=== PATIENT | male | born 1975 | race American Indian/Alaskan Native ===

== ENCOUNTER 2019-02-12 18:05 | Emergency (ER) | payer OTHER ==
[2019-02-12] MEDS ORDERED: NACL 0.9% 1000 ML 1,000 ML IV ONE (18:08)
[2019-02-12 18:15] VITALS: BP 144/71
[2019-02-12] MEDS ORDERED: TORADOL IV ONE (18:15)
[2019-02-12] MEDS ORDERED: TORADOL ONE (18:17)
--- NOTE | 2019-02-12 18:21 | Emergency Department Report ---
ED Fall HPI - General Chief Complaint: Fall Stated Complaint: FALL Time Seen by Provider: 02/12/19 18:07 Source: patient Mode of arrival: Stretcher - History of Present Illness Initial Comments: This is a 43-year-old man who fell approximately 10 feet off a ladder. He fell onto his right side. He was vague about the circumstances of his fall. He could not state that he exactly lost consciousness but did not seem to have good recall of the circumstances of why he fell. Does not appear to have retrograde amnesia. He does not have any gross evidence of head injury. He does complain of discomfort and the right side of his neck as well as his mid thoracic spine area on preliminary palpation. He was ambulatory after the event and came to triage in a private vehicle. MD Complaint: fall -: unknown (somewhat vague history) Fall From: other (ladder) When Fall Occurred: 1 hour [employer] (or less) Place Fall Occurred: home Loss of Consciousness: other (I don't think so) Prolonged Down Time?: no Symptoms Prior to Fall: none Location: neck, back Severity: mild Quality: aching Context: other (uncertain) Associated Symptoms: denies - Related Data Previous Rx's Medication Instructions Recorded Last Taken Type Naproxen [Naprosyn] 500 mg PO Q12H PRN #14 tablet 02/12/19 Unknown Rx Allergies Allergy/AdvReac Type Severity Reaction Status Date / Time No Known Allergies Allergy Unverified 02/12/19 18:14 ED Review of Systems ROS: Stated complaint: FALL Other details as noted in HPI Constitutional: denies: chills, fever Eyes: denies: eye pain, eye discharge, vision change ENT: denies: ear pain, throat pain Respiratory: denies: cough, shortness of breath, wheezing Cardiovascular: denies: chest pain, palpitations Endocrine: no symptoms reported Gastrointestinal: denies: abdominal pain, nausea, diarrhea Genitourinary: denies: urgency, dysuria Musculoskeletal: denies: back pain, joint swelling, arthralgia Skin: denies: rash, lesions Neurological: denies: headache, weakness, paresthesias Psychiatric: denies: anxiety, depression Hematological/Lymphatic: denies: easy bleeding, easy bruising ED Past Medical Hx - Past Medical History Previous Medical History?: No - Surgical History Past Surgical History?: No - Social History Smoking Status: Former Smoker Substance Use Type: None - Medications Home Medications: Home Medications Medication Instructions Recorded Confirmed Last Taken Type Naproxen [Naprosyn] 500 mg PO Q12H PRN #14 tablet 02/12/19 Unknown Rx ED Physical Exam - General Limitations: No Limitations General appearance: alert, in no apparent distress - Head Head exam: Present: atraumatic, normocephalic - Eye Eye exam: Present: normal appearance. Absent: scleral icterus - ENT ENT exam: Present: mucous membranes moist - Neck Neck exam: Present: normal inspection, tenderness (mild right paravertebral mid cervical tenderness), other (placed in a cervical collar) - Respiratory Respiratory exam: Present: normal lung sounds bilaterally. Absent: respiratory distress - Cardiovascular Cardiovascular Exam: Present: regular rate, normal rhythm. Absent: systolic murmur, diastolic murmur, rubs, gallop - GI/Abdominal GI/Abdominal exam: Present: soft, normal bowel sounds. Absent: distended, t enderness, guarding, rebound, rigid - Rectal Rectal exam: Present: deferred - Extremities Exam Extremities exam: Present: normal inspection, full ROM. Absent: tenderness - Back Exam Back exam: Present: normal inspection, paraspinal tenderness (mid dorsal spine). Absent: CVA tenderness (R), CVA tenderness (L), vertebral tenderness - Neurological Exam Neurological exam: Present: alert, oriented X3, CN II-XII intact. Absent: motor sensory deficit - Psychiatric Psychiatric exam: Present: normal affect, normal mood - Skin Skin exam: Present: warm, dry, intact, normal color. Absent: rash ED Course Vital Signs 02/12/19 18:12 Temperature 98 F Pulse Rate 98 H Respiratory 16 Rate Blood Pressure 144/71 O2 Sat by Pulse 100 Oximetry - Reevaluation(s) Reevaluation #1: Patient is doing well without significant complaint of pain. He states he remembers the event better now. He states the ladder simply slipped off the gutter while he was trying to go down. He does not refer any additional complaint. 02/12/19 19:41 ED Medical Decision Making - Lab Data Result diagrams: 02/12/19 18:29 02/12/19 Unknown Laboratory Results - last 24 hr 02/12/19 02/12/19 02/12/19 18:29 Unknown Unknown WBC 5.5 RBC 4.31 Hgb 14.8 Hct 43.6 MCV 101 H MCH 34 H MCHC 34 RDW 12.9 L Plt Count 217 Lymph % (Auto) 41.9 H [place] % (Auto) 13.4 H Eos % (Auto) 4.9 H Baso % (Auto) 0.5 Lymph # 2.3 [place] # 0.7 Eos # 0.3 Baso # 0.0 Seg Neutrophils % 39.3 L Seg Neutrophils # 2.2 Sodium 141 Potassium 3.9 Chloride 101.6 Carbon Dioxide 26 Anion Gap 17 BUN 12 Creatinine 1.2 Estimated GFR > 60 BUN/Creatinine Ratio 10 Glucose 113 H Calcium 9.8 Total Bilirubin 0.60 Direct Bilirubin < 0.2 Indirect Bilirubin 0.4 AST 26 ALT 23 Alkaline Phosphatase 89 Total Protein 7.7 Albumin 4.0 Albumin/Globulin Ratio 1.1 - EKG Data -: EKG Interpreted by Me EKG shows normal: sinus rhythm, axis, intervals, QRS complexes, ST-T waves Rate: normal - EKG Data Interpretation: no acute changes, other (no ectopy) - Radiology Data Radiology results: report reviewed (CT head no acute process) Chest x-ray and thoracic spine x-ray showed no acute process Cervical CT no fracture no malalignment per Radiologist Critical care attestation.: If time is entered above; I have spent that time in minutes in the direct care of this critically ill patient, excluding procedure time. ED Disposition Clinical Impression: Strain, dorsal Cervical strain Qualifiers: Encounter type: initial encounter Qualified Code(s): S16.1XXA - Strain of muscle, fascia and tendon at neck level, initial encounter Fall Qualifiers: Encounter type: initial encounter Qualified Code(s): W19.XXXA - Unspecified fall, initial encounter Disposition: TO HOME OR SELFCARE Is pt being admited?: No Does the pt Need Aspirin: No Condition: Stable Instructions: Cervical Spine Strain (ED), Muscle Strain (ED) Additional Instructions: Return if any additional problem acute change as needed. Follow-up with orthopedic doctor any persistent neck or back pain. See referral. Prescriptions: Naproxen [Naprosyn] 500 mg PO Q12H PRN #14 tablet PRN Reason: Pain, Moderate (4-6) Referrals: [facility] MD RAMAN [Primary Care Provider] - 3-5 Days JOSETTE MEIER MD [Staff Physician] - 2-3 Days Time of Disposition: 19:47
[2019-02-12 18:59] LABS: BUN/Creatinine Ratio 10; Blood Urea Nitrogen 12 mg/dL (9-20); Calcium 9.8 mg/dL (8.4-10.2); Hemolysis Index 11
[2019-02-12 19:03] LABS: Alanine Aminotransferase 23 units/L (7-56)
[2019-02-12 19:05] LABS: Basophils % (Auto) 0.5 % (0.0-1.8); Eosinophils # (Auto) 0.3 K/mm3 (0.0-0.4); Eosinophils % (Auto) 4.9 % (0.0-4.3); Hematocrit 43.6 % (35.5-45.6); Hemoglobin 14.8 gm/dl (11.8-15.2); Lymphocytes # (Auto) 2.3 K/mm3 (1.2-5.4); Lymphocytes % (Auto) 41.9 % (13.4-35.0); Mean Corpuscular HGB Conc 34 % (32-34); Mean Corpuscular Volume 101 fl (84-94); Monocytes # (Auto) 0.7 K/mm3 (0.0-0.8); Monocytes % (Auto) 13.4 % (0.0-7.3); Platelet Count 217 K/mm3 (140-440); Red Blood Count 4.31 M/mm3 (3.65-5.03); Red Cell Distribution Width 12.9 % (13.2-15.2)
[2019-02-12 19:05] LABS: Bilirubin,Direct < 0.2 mg/dL (0-0.2)
--- NOTE | 2019-02-12 19:06 | Cat Scan Report ---
PROCEDURE: CT HEAD/BRAIN WO CON TECHNIQUE: CT examination of the head without IV contrast HISTORY: Trauma COMPARISONS: None FINDINGS: Scattered moderate mucosal thickening bilateral ethmoid sinuses. Minimal mucosal thickening sphenoid sinuses. Mucosal thickening left frontoethmoidal recess. No acute air-fluid level visualized in the i ncluded air-filled sinuses. Bone windows demonstrate no acute fracture. The brain is without mass, mass effect, hemorrhage, or acute infarct. There is no extra-axial intracranial bleed, brain bleed, or midline shift. The ventricles and sulci are age-appropriate. IMPRESSION: No acute CVA, intracranial bleed, or brain mass Paranasal sinus disease without visible acute fluid level This document is electronically signed by Georgi Jennings MD., Feb 12 2019 07:04:53 PM ET
[2019-02-12 19:09] LABS: INR 0.95 (0.87-1.13)
[2019-02-12 19:10] LABS: Partial Thromboplastin Time 28.7 Sec. (24.2-36.6)
--- NOTE | 2019-02-12 19:43 | Cat Scan Report ---
PROCEDURE: CT CERVICAL SPINE WO CON HISTORY: Trauma FINDINGS: Unenhanced CT of the cervical spine was performed and data was reformatted in the sagittal and coronal planes. These images demonstrate no fracture or malalignment of the cervical spine. There is endplate remodel ing at C6-C7. The prevertebral soft tissues are within normal limits. IMPRESSION: No fracture or malalignment of the cervical spine This document is electronically signed by Russell Wallace MD., Feb 12 2019 07:41:31 PM ET
[2019-02-12 20:10] LABS: Bacteria,Urine 1+ /HPF (Negative); Bilirubin,Urine NEG (Negative); Blood,Urine NEG (Negative); Color,Urine Yellow (Yellow); Mucus,Urine 1+ /HPF; Protein,Urine <15 mg/dL mg/dL (Negative)
--- NOTE | 2019-02-12 20:15 | XRay Report ---
PROCEDURE: XR SPINE THORACIC 2V TECHNIQUE: Thoracic spine radiographs, including AP and lateral projections. HISTORY: trauma COMPARISONS: None FINDINGS: Alignment: Normal Vertebral body height: Normal Disk spaces: Normal Fracture(s): None Bone mineralization: Normal IMPRESSION: Normal Examination This document is electronically signed by Bill Davis MD., Feb 12 2019 08:14:01 PM ET
--- NOTE | 2019-02-12 20:27 | XRay Report ---
PROCEDURE: XR CHEST 1V AP TECHNIQUE: Chest radiograph single view. HISTORY: trauma... fell off roof COMPARISONS: None . FINDINGS: Heart: Normal. Mediastinum/Vessels: Normal. Lungs/Pleural space: Normal. Bony thorax: No acute osseous abnormality. Life support devices: None. IMPRESSION: No acute cardiopulmonary abnormality. This document is electronically signed by Bill Davis MD., Feb 12 2019 08:25:38 PM ET
== END 2019-02-12 20:42 | disposition home or self-care (01) ==
LOC: ED 18:05
DX: S16.1XXA Strain of muscle, fascia and tendon at neck level, initial encounter (principal); S29.012A Strain of muscle and tendon of back wall of thorax, initial encounter; Z87.891 Personal history of nicotine dependence; W11.XXXA Fall on and from ladder, initial encounter; Y93.89 Activity, other specified; Y92.89 Other specified places as the place of occurrence of the external cause; Y99.8 Other external cause status
CPT/HCPCS: 36415; 70450; 71045; 72070; 72125; 80048; 80076; 81001; 85025; 85610; 85730; 93005; 93010; 96374; 99285; J1885; J7030